=== PATIENT | male | born 1970 | race Caucasian/White ===

== ENCOUNTER → 2019-02-20 | Outpatient (CLI) | payer OTHER ==
[~2019-02-20] MED LIST: DICYCLOMINE HCL20 MG PO; LIALDA1.2 GM PO; PANTOPRAZOLE SO40 MG PO; PROBIOTIC PO; SULFASALAZINE500 MG PO; ZOFRAN ODT4 MG PO
--- NOTE | 2019-02-20 11:56 | Diagnostic Imaging Report ---
EXAM: US ABDOMEN COMPLETE DATE: 02/20/2019 10:27 AM Time stamp on exam: INDICATION: Upper abdominal pain COMPARISON: None TECHNIQUE: Transverse and longitudinal frost scale and color doppler sonographic images of the upper abdomen were obtained. FINDINGS: LIVER 14.3 cm in the right midclavicular line. Increased parenchymal echogenicity, normal contour, no masses. SPLEEN 8.6 cm in maximum diameter. Normal echogenicity, no masses. GALLBLADDER No stones, sludge, wall-thickening or pericholecystic fluid. Negative sonographic Finch's sign. BILE DUCTS No intra nor extra-hepatic biliary dilation. Common bile duct measures 0.4 cm PANCREAS: Visualized portions are normal. RIGHT KIDNEY: 10.1 cm Echogenicity: Normal Collecting System: No hydronephrosis Stones: None Cyst/Mass: None LEFT KIDNEY: 10.4 cm Echogenicity: Normal Collecting System: No hydronephrosis Stones: None Cyst/Mass: None VESSELS: Aorta: Visualized portions are within normal size limits Inferior Vena Cava: Visualized portions are normal Main Portal Vein: 1.2 cm, normal size with hepatopetal flow. FREE FLUID: None IMPRESSION: Increased hepatic parenchymal echogenicity compatible with steatosis. Otherwise unremarkable abdominal ultrasound. Signed by: Dr. Griffin Raymundo M.D. on 02/20/2019 11:53 AM
== END ==
LOC: US 10:18
PROVIDERS: ATTEND Internal Medicine Gastroenterology
DX: R10.10 Upper abdominal pain, unspecified (principal); R14.0 Abdominal distension (gaseous)
CPT/HCPCS: 76700